=== PATIENT | female | born 1995 | race Caucasian/White ===

== ENCOUNTER 2020-05-27 07:40 | Inpatient (IN) ==
[2020-05-27] MEDS ORDERED: OXYTOCIN 30 UNITS/500 ML BAG IV PRN ×3 (08:30→16:54)
[2020-05-27] MEDS ORDERED: PENICILLIN G POTASSIUM 3 MU in DEXTROSE 5% 100 ML IV PRN (08:30)
[2020-05-27] MEDS ORDERED: LACTATED RINGER'S 1,000 ML IV PRN (08:30)
--- NOTE | 2020-05-27 08:35 | History & Physical Report ---
Date of Service May 27, 2020 Assessment & Plan (1) Supervision of normal first : IOL at 41 weeks PNL: Rh neg (s/p Rhogam x2), RI, GBS pos, COVID neg Admit, labs, start IV Intrapartum PCN ordered Patient currently does not want epidural Proceed with induction of labor per Pitocin augmentation protocol. Anticipate Admission and Anticipated Discharge Date Admission Date: May 27, 2020 History of Present Illness Primary Care Provider: NO PCP HPI Jaylene Jones is a 24 y/o female currently at 41 weeks WGA with an JOEY 05/20/2020 as determined by LMP who is here for IOL. Her was complicated by Rh- status (s/p Rhogam x2 during this - was anti-D positive) and GBS+ status. + contractions; + movement; - fluid loss; - bloody show Had regular appointments with OB. 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) Labs 10/10/2019 Rubella: immune VDRL/RPR: non-reactive Gonorrhea: negative Chlamydia: negative HIV: negative HbSAg: negative GBS: + 04/23/2020 COVID-19 negative 05/20/2020 CF: negative Allergies Allergy/AdvReac Type Severity Reaction Status Date / Time No Known Allergies Allergy Verified 05/27/20 07:54 Home Medications Medication Instructions Recorded Confirmed Type prenat.vits,sonia,[id number] 1 tab PO DAILY 10/06/19 05/27/20 History breast pump #1 ea 04/23/20 05/26/20 Rx Patient History Medical History Encounter for anatomic survey Vaginal bleeding during Surgical History S/P wisdom tooth extraction Social History (Updated 05/27/20 @ 07:55 by Rachel Aleman RN) Smoking Status: Never smoker Hx Alcohol Use: No Hx Substance Use: No Preferred Language: Wolof Communication Ability: Effective Visual Impairment: No Limitations Hearing Ability: Normal Barrel Centerer Required: No Beliefs That Will Affect Care: None marital status: marital status details: Ruben (23) [phone] Current Living Situation: Spouse Current Living Situation Comment: lives with spouse, 2 cats, spouse to change litter. current occupational status: employed current occupation: [employer] Other Information That Helps Us Care for You: No Feels Safe at Home: Yes Safety Concerns: Feels Safe At This Time Assistive Devices: None Review of Systems ROS Denies fever or chills. Denies shortness of breath or cough. Denies chest pain. Denies breast pain. Denies dysuria or hematuria. Denies leg pain or leg swelling. Denies headache or changes in vision. Physical Exam Physical Exam: PE General: Alert, oriented. No acute distress. Cardiac: Regular rate and rhythm, no murmurs/rubs/gallops. Respiratory: Clear to auscultation bilaterally a/p, no wheezes/rales/rhonchi. No increased work of breathing. Symmetrical chest rise. No respiratory distress. Abdomen: Gravid. Vertex position. + heart tones. - palpable contractions. EFW 7-8lbs Pelvic: Dilation 5cm; Effacement 90%; Station -[address] Thomason External FHT and external uterine monitors used; Category 1 tracing; + FHT variability. Lower Extremities: No lower extremity edema or swelling. No deep calf pain. John's negative bilaterally. Results & Data ([facility]) Vital Signs (Past 12 Hours) Vital Signs Pulse BP 05/27/20 07:52 122 H 120/65 Laboratory Results Laboratory Results Labs at admission today H.3 Hct: 35.0 WBC: 10.20 Plt: 187 Code Status & VTE Plan VTE Prophylaxis Plan VTE Prophylaxis will be ordered: No Reason for no VTE drug order: Treatment not indicated Supervising Physician Co-Signing Physician Notes Resident Physician Supervision Note: I was present with Dr. Toney during the history and exam. I discussed the case with the resident and agree with the findings and plan as documented in the note. Any exceptions or clarifications are listed here: 24yo @ 41 0/7, IOL for postdates. Pen G for GBS prophylaxis, pitocin. Patient agreeable with plan. Documented By: Dasha Thomason, Resident Activity Tracking Resident Involvement: Resident Care Provided Care Provided: Adult Hospital Medicine
[2020-05-27] MEDS ORDERED: PENICILLIN G POTASSIUM 6 MU in DEXTROSE 5% 250 ML IV STA (08:41)
[2020-05-27 08:52] LABS: Hemoglobin 12.3 g/dL (12.0-16.0); Mean Corpuscular Hemoglobin 31.7 pg (25-34); Mean Corpuscular Hgb Conc 35.1 g/dL (32-36); Mean Corpuscular Volume 90.2 fL (80-100); Mean Platelet Volume 10.8 fL (7.4-10.4); Nucleated RBC # (auto) 0.02 K/uL (0-0); Nucleated RBC % (auto) 0.2 %; Platelet Count 187 K/uL (130-400); RDW Coefficient of Variation 13.6 % (11.5-14.5); RDW Standard Deviation 45.2 fL (36.4-46.3); Red Blood Count 3.88 M/uL (4.2-5.4)
--- NOTE | 2020-05-27 14:38 | Labor Progress Brief Note ---
Date of Service May 27, 2020 Subjective Feeling contractions. FHT Cat 1 [place] Q 2-3 SVE 7/100/0 AROM clear fluid. Continue labor. Assessment & Plan Admission and Anticipated Discharge Date Admission Date: May 27, 2020 Results & Data ([facility]) Vital Signs (Past 12 Hours) Vital Signs Temp Pulse Resp BP 05/27/20 14:00 76 112/65 05/27/20 12:58 91 H 114/59 L 05/27/20 12:01 88 116/55 L 05/27/20 11:05 36.7 C 72 20 108/64 05/27/20 09:58 87 119/68 05/27/20 07:52 36.9 C 122 H 20 120/65 Coding Level of Care Code None
[2020-05-27] MEDS ORDERED: LIDOCAINE HCL 1% 20 ML VIAL ONE (16:15)
--- NOTE | 2020-05-27 16:47 | Delivery Summary ---
Vaginal Delivery Summary Date of Service May 27, 2020 Vaginal Delivery Summary and 2nd Degree LAC Vaginal Delivery Summary: Pre-delivery diagnoses: 24yo @ 41 0/7, Rh neg, IOL for postdates Post-delivery diagnoses: same Procedure: spontaneous vaginal delivery, repair Surgeon: Dasha Thomason DO Complications: none Findings: Viable . Apgars: . Weight pending, please see nursery records Estimated blood loss: Description of delivery: The patient progressed to complete with epidural anesthesia. She then began to push. She spontaneously vaginally delivered a viable from the cephalic presentation. The head delivered in VALERY positi on. The anterior shoulder delivered, followed by the posterior shoulder, followed by the body. The baby was placed on mother's abdomen and a spontaneous cry was heard. Delayed cord clamping was employed, and the cord was doubly clamped and cut. Cord blood was obtained. The placenta was delivered spontaneously intact with a 3-vessel cord. The uterus and vagina were swept of clots and debris. IV pitocin was given. The uterus became firm. The cervix, vagina, and perineum were inspected and a 2nd degree laceration was repaired with 3-0 vicryl in standard fashion. Excellent hemostasis was observed. The mother and baby are recovering in stable and good condition in the room. Sponge, needle and instrument counts were correct x 2. Dasha Thomason DO [facility] Vaginal Delivery Charge Vaginal Delivery Codes: 98619 global code for the antepartum, delivery, and post- Delivery Type Details: and 2nd Degree LAC
[2020-05-27] MEDS ORDERED: LACTATED RINGER'S 1,000 ML IV SCH (16:54)
[2020-05-27] MEDS ORDERED: BENZOCAINE 20% AER SPR 82.5 GM CAN EXT PRN (16:54)
[2020-05-27] MEDS ORDERED: ACETAMINOPHEN 325 MG TAB PO PRN (16:54)
[2020-05-27] MEDS ORDERED: ZOLPIDEM TARTRATE 5 MG TAB PO PRN (16:54)
[2020-05-27] MEDS ORDERED: HYDROCORTISONE ACETATE 25 MG SUPP PR PRN (16:54)
[2020-05-27] MEDS ORDERED: DIPHTHERIA/TETANUS/PERTUSSIS 0.5 ML SYR/VIAL IM ONE (16:54)
[2020-05-27] MEDS ORDERED: SUPERCREAM 0.870% 15 GM JAR EXT PRN (16:54)
[2020-05-27] MEDS ORDERED: oxyCODONE/ACETAMINOPHEN 5mg/325mg TAB PO PRN (16:54)
[2020-05-27] MEDS: DOCUSATE SODIUM 100 MG CAP PO SCH (20:41)
[2020-05-27] MEDS: IBUPROFEN 600 MG TAB PO PRN (23:24)
--- NOTE | 2020-05-28 05:46 | Obstetrical Progress Note ---
Date of Service May 28, 2020 Assessment & Plan (1) Supervision of normal first : S/p Day 1 - Feels well today. Eating well, voiding well, ambulating well. - Pain well-controlled with ibuprofen 600mg Q4H PRN. - Vital signs reviewed and WNL. - Hemoglobin reviewed. 12.3 --> 12.2 (today). - Blood Type: A-, antibody positive (Anti-D due to RhIg), GBS positive (s/p intrapartum PCN), Rubella Immune, COVID-19 negative - Continue routine care: encourage ambulation, monitor and control pain with Motrin PRN, continue regular OB diet, monitor lochia - Encourage breast feeding. - After discharge, will have 6-wk follow-up with Dr. Thomason Admission and Anticipated Discharge Date Admission Date: May 27, 2020 Supervising Physician Co-Signing Physician Notes Resident Physician Supervision Note: I was present with Dr. jon during the history and exam. I discussed the case with the resident and agree with the findings and plan as documented in the note. Any exceptions or clarifications are listed here: PPD#1 doing well. Documented By: Dasha Thomason, DO Subjective HPI Jaylene Jones is a 24 y/o female who is PPD 1 spontaneous vaginal delivery at 41 weeks. She reports feeling well overall this morning. No abdominal cramping and minimal-moderate pain well managed on analgesics. Voiding well. Tolerating meals overnight without difficulty. Patient has been able to ambulate some. passing gas and no bowel movement. Has persistent lochia with some improvement this morning. Currently [] [bottle]. Review of Systems Review of Systems: ROS Denies fever or chills. Denies shortness of breath or cough. Denies chest pain. Denies breast pain. Denies dysuria. Denies leg pain or leg swelling. Physical Exam Physical Exam: PE General: Alert, oriented. No acute distress. Cardiac: Regular rate and rhythm. No murmurs. Respiratory: Clear to auscultation bilaterally a/p, no wheezes/rales/rhonchi. No increased work of breathing. Symmetrical chest rise. No respiratory distress. Abdomen: Soft, nontender, nondistended. Bowel sounds present. Uterus: Uterine fundus firm, palpable at umbilicus. Lower Extremities: No lower extremity edema or swelling. No deep calf pain. John's negative bilaterally. Results & Data ([facility]) Vital Signs (Past 12 Hours) Vital Signs Temp Pulse Pulse Resp BP BP Pulse Ox 05/28/20 04:00 36.7 C 76 18 118/74 05/27/20 23:30 36.6 C 86 18 121/76 05/27/20 19:40 36.5 C 96 H 16 123/73 97 05/27/20 18:31 108 H 133/59 L 05/27/20 18:30 36.5 C 20 05/27/20 18:23 18 05/27/20 18:02 88 122/58 L Resident Activity Tracking Resident Involvement: Resident Care Provided Care Provided: Adult Hospital Medicine
[2020-05-28 06:55] LABS: Hematocrit (blood only) 35.2 % (37-47); Hemoglobin 12.2 g/dL (12.0-16.0); Mean Corpuscular Hemoglobin 31.2 pg (25-34); Mean Corpuscular Hgb Conc 34.7 g/dL (32-36); Mean Platelet Volume 11.1 fL (7.4-10.4); Platelet Count 202 K/uL (130-400); RDW Coefficient of Variation 13.6 % (11.5-14.5); RDW Standard Deviation 44.7 fL (36.4-46.3); Red Blood Count 3.91 M/uL (4.2-5.4)
[2020-05-28] MEDS: PRENATAL VITAMIN 1 TAB PO SCH (08:15)
[2020-05-28] MEDS: DOCUSATE SODIUM 100 MG CAP PO SCH ×2 (08:15→20:06)
[2020-05-28] MEDS: IBUPROFEN 600 MG TAB PO PRN (13:00)
[2020-05-28] MEDS ORDERED: bisacodyL 5 MG TABEC PO SCH (20:00)
[2020-05-29] MEDS: IBUPROFEN 600 MG TAB PO PRN (03:59)
[2020-05-29] MEDS ORDERED: bisacodyL 10 MG SUPP PR PRN (06:00)
[2020-05-29 07:21] LABS: Hematocrit (blood only) 37.1 % (37-47); Hemoglobin 12.5 g/dL (12.0-16.0)
--- NOTE | 2020-05-29 08:38 | Obstetrical Progress Note ---
Date of Service May 29, 2020 Assessment & Plan (1) Supervision of normal first : Post day 2 s/p . Stable for discharge Subjective Ambulation: ambulating normally Voiding: no voiding problems Passing Gas:: Yes Diet Tolerance:: regular diet Lochia:: Moderate Feeding Type:: breast feeding Physical Exam Constitutional WD/WN, vitals as above Respiratory normal respiratory effort; no respiratory distress and no labored breathing Gastrointestinal (Abdomen) Inspection/Auscultation: abdomen normal to inspection; abdomen not distended Percussion/Palpation: abdomen soft; abdomen nontender, no guarding and abdomen not rigid Genitourinary OB Exam Abdomen: + fundal height Fundus: + firm and + relation to umbilicus (Below); not tender and not boggy Results & Data ([facility]) Vital Signs (Past 12 Hours) Vital Signs Temp Pulse Resp BP 05/28/20 23:45 36.6 C 79 18 109/71
[2020-05-29] MEDS: DOCUSATE SODIUM 100 MG CAP PO SCH (09:54)
[2020-05-29] MEDS: PRENATAL VITAMIN 1 TAB PO SCH (09:54)
== END 2020-05-29 13:40 | disposition home or self-care (01) | DRG 768 ==
LOC: 4S1 07:40 → 4S2 19:00

== ENCOUNTER 2023-02-01 07:26 | Inpatient (IN) ==
[2023-02-01] MEDS ORDERED: LACTATED RINGER'S 1,000 ML IV PRN (07:55)
[2023-02-01] MEDS ORDERED: OXYTOCIN 30 UNITS/500 ML BAG IV PRN ×3 (07:55→15:59)
[2023-02-01] MEDS ORDERED: LIDOCAINE 1% LOCAL 20 ML VIAL INFIL PRN (07:55)
[2023-02-01 08:44] LABS: Hematocrit (blood only) 31.9 % (37.0-47.0); Hemoglobin 10.4 g/dl (12.0-16.0); Mean Corpuscular Hemoglobin 26.6 pg (25.0-34.0); Mean Corpuscular Hgb Conc 32.6 g/dL (32.0-36.0); Mean Corpuscular Volume 81.6 fL (80.0-100.0); Mean Platelet Volume 10.9 fL (9.4-12.4); Platelet Count 248 K/uL (130-400); RDW Coefficient of Variation 14.1 % (11.5-14.5); RDW Standard Deviation 41.1 fL (36.4-46.3); Red Blood Count 3.91 M/uL (4.20-5.40); White Blood Count 11.89 K/ul (4.8-10.8)
--- NOTE | 2023-02-01 09:24 | History & Physical Report ---
Date of Service February 01, 2023 Assessment & Plan (1) Encounter for supervision of normal in multigravida, antepartum: Plan: Admit to L&D. EFM/toco. Labs. IV. Will start PCN prior to starting pitocin, as want to get at least 4h treatment prior to delivery for GBS. Admission and Anticipated Discharge Date Admission Date: February 01, 2023 History of Present Illness Chief Complaint: induction of labor Primary Care Provider: NO PCP 27yo @ 40 10/25, here for IOL, GBS+ and Rh negative. Allergies Allergy/AdvReac Type Severity Reaction Status Date / Time No Known Allergies Allergy Verified 01/30/23 13:46 Home Medications Medication Instructions Recorded Confirmed Type prenat.vits,sonia,npq-ktjy-plnxh 1 tab PO DAILY 06/15/22 02/01/23 History Patient History Medical History Carrier of group B Streptococcus Encounter for anatomic survey Vaginal bleeding during Surgical History S/P wisdom tooth extraction Family History Father Deep vein thrombosis after knee surgery Other Colorectal cancer Dyslipidemia Heart disease Hypertension Kidney disease Osteoarthritis Thyroid disease Denies family history of Ovarian cancer Breast cancer Social History (Updated 06/15/22 @ 07:40 by Antionette Tavares) Smoking Status: Never smoker Do You Dip or Chew Tobacco: No; Hx Alcohol Use: No Hx Substance Use: No Preferred Language: Bulgarian Communication Ability: Effective Visual Impairment: No Limitations Hearing Ability: Normal Pricing Specialist Required: No Beliefs That Will Affect Care: None marital status: marital status details: Ruben (27) [phone] Current Living Situation: Spouse Current Living Situation Comment: lives with spouse, daughter, 2 cats, spouse to change litter. current occupational status: employed current occupation: [employer] Other Information That Helps Us Care for You: No Feels Safe at Home: Yes Assistive Devices: None and Glasses Review of Systems All systems reviewed & are unremarkable except as noted in HPI & below Physical Exam Physical Exam: FHT Cat 1 [place] rare SVE 6/100/0 Constitutional: WD/WN, vitals as above Respiratory: normal respiratory effort, lungs clear to auscultation no respiratory distress Cardiovascular: Rate/Rhythm: regular rate and regular rhythm Gastrointestinal (Abdomen): Inspection/Auscultation: abdomen normal to in spection Percussion/Palpation: abdomen soft; abdomen nontender Gravid. No s/s chorio or abruption. Skin: no rashes, warm and dry Psychiatric: A+Ox3, euthymic affect Results & Data Vital Signs (Past 12 Hours) Vital Signs Temp Pulse Resp BP 02/01/23 07:55 37.0 C 90 20 118/63 02/01/23 07:52 90 118/63 Coding Level of Care Code None Diagnoses Encounter for supervision of normal in multigravida, antepartum Z34.80
[2023-02-01] MEDS ORDERED: PENICILLIN G POTASSIUM 6 MU in DEXTROSE 5% 250 ML IV ONE (09:45)
[2023-02-01] MEDS ORDERED: PENICILLIN G POTASSIUM 3 MU in DEXTROSE 5% 100 ML IV PRN (12:21)
--- NOTE | 2023-02-01 14:43 | Labor Progress Brief Note ---
Date of Service February 01, 2023 Subjective Feeling ctx. FHT Cat 1 [place] Q 2-4 SVE 8/100/0 AROM clear fluid Anticipate . Continue to monitor. Assessment & Plan Admission and Anticipated Discharge Date Admission Date: February 01, 2023 Results & Data Vital Signs (Past 12 Hours) Vital Signs Temp Pulse Resp BP 02/01/23 14:37 36.6 C 20 02/01/23 07:55 37.0 C 90 20 118/63 02/01/23 14:36 77 116/72 02/01/23 13:29 79 20 111/61 02/01/23 12:06 90 92/70 L 02/01/23 11:17 36.8 C 85 20 110/68 02/01/23 07:52 90 118/63 Coding Level of Care Code None Diagnoses
--- NOTE | 2023-02-01 15:56 | Delivery Summary ---
Vaginal Delivery Summary Date of Service February 01, 2023 Vaginal Delivery Summary and 2nd Degree LAC Vaginal Delivery Summary: Pre-delivery diagnoses: 27yo @ 40 6/7, IOL postdates, GBS+, Rh negative Post-delivery diagnoses: same Procedure: spontaneous vaginal delivery, repair of 2nd degree perineal laceration Surgeon: Dasha Thomason DO Complications: none Findings: Viable female . Apgars: 8/9 . Weight pending, please see nursery records. Estimated blood loss: 300ml Description of delivery: The patient progressed to complete with epidural anesthesia. She then began to push. She spontaneously vaginally delivered a viable from the cephalic presentation. The head delivered in VALERY position. Nuchal x 1, easily reduced. The anterior shoulder delivered, followed by the posterior shoulder, followed by the body. The baby was placed on mother's abdomen and a spontaneous cry was heard. Delayed cord clamping was employed, and the cord was doubly clamped and cut. Cord blood was obtained. The placenta was delivered spontaneously intact with a 3-vessel cord. Extra lobe noted on placenta, approx 4-5cm. The uterus and vagina were swept of clots and debris. IV pitocin was given. The uterus became firm. The cervix, vagina, and perineum were inspected and a 2nd degree laceration was noted. 1% lidocaine injected to local area. Laceration repaired with 3-0 Vicryl in standard fashion. Excellent hemostasis was observed. The mother and baby are recovering in stable and good condition in the room. Sponge, needle and instrument counts were correct x 2. Dasha Thomason DO [facility] Vaginal Delivery Charge Vaginal Delivery Codes: 20037 global code for the antepartum, delivery, and post- Delivery Type Details: and 2nd Degree LAC
[2023-02-01] MEDS ORDERED: HYDROCORTISONE ACETATE 25 MG SUPP PR PRN (15:59)
[2023-02-01] MEDS ORDERED: bisacodyL 10 MG SUPP PR PRN (15:59)
[2023-02-01] MEDS ORDERED: oxyCODONE/ACETAMINOPHEN 5mg/325mg TAB PO PRN (15:59)
[2023-02-01] MEDS ORDERED: IBUPROFEN 600 MG TAB PO PRN (15:59)
[2023-02-01] MEDS ORDERED: BENZOCAINE 20% SPRY 85 APPLN/85 GM CAN EXT PRN (15:59)
[2023-02-01] MEDS ORDERED: DIPHTHERIA/TETANUS/PERTUSSIS Vaccine (Tdap, Age 7+yrs) 0.5mL SYR/VL IM ONE (15:59)
[2023-02-01] MEDS: ACETAMINOPHEN 325 MG TAB PO PRN (16:13)
[2023-02-01] MEDS: DOCUSATE SODIUM 100 MG CAP PO SCH (20:15)
--- NOTE | 2023-02-02 04:52 | Obstetrical Progress Note ---
Date of Service <Edy Rene DO - Last Filed: 02/02/23 06:00> February 02, 2023 Assessment & Plan <Edy Rene DO Last Filed: 02/02/23 06:00> (1) (spontaneous vaginal delivery): Plan Post day 1 s/p Vital signs reviewed and WNL Pt feels well today, eating, voiding, and ambulating well Pain well controlled with Tylenol Routine post care - OOB, ambulation, diet progression as tolerated After discharge, will have 6 week follow-up with Dr. Thomason. <Dasha Thomason, - Last Filed: 02/02/23 07:05> (1) (spontaneous vaginal delivery): Subjective <Edy Rene - Last Filed: 02/02/23 06:00> Ambulation: ambulating normally Voiding: no voiding problems Passing Gas:: Yes Diet Tolerance:: regular diet Lochia:: Moderate Feeding Type:: breast feeding Pain well controlled, no overnight pain meds needed Review of Systems -Denies fever or chills -Denies dyspnea, chest pain, or palpitations -Denies breast pain -Denies dysuria -Denies headache or changes in vision Physical Exam <Edy Rene DO Last Filed: 02/02/23 06:00> General: Alert and oriented. No acute distress Cardiac: Regular rate and rhythm, no murmurs appreciated Respiratory: Lungs clear to auscultation bilaterally, No increased work of breathing Abdominal: Soft, non-tender, non-distended. Bowel sounds present. Uterus: Uterine fundus firm, palpable below umbilicus Extremities: No lower extremity edema, calves non-tender bilaterally Results & Data <Edy Rene DO - Last Filed: 02/02/23 06:00> Vital Signs (Past 12 Hours) Vital Signs Temp Pulse Pulse Resp BP BP Pulse Ox 02/02/23 02:53 37 C 80 18 110/76 96 02/01/23 23:15 36.7 C 77 16 118/75 98 02/01/23 20:30 36.6 C 81 18 113/73 99 02/01/23 17:20 18 02/01/23 18:07 37.0 C 69 20 123/58 L 02/01/23 17:52 71 130/63 02/01/23 17:37 86 128/64 02/01/23 17:22 80 133/63 02/01/23 17:07 80 127/62 O2 Del Method 02/02/23 02:53 Room Air 02/01/23 23:15 Room Air 02/01/23 20:30 Room Air 02/01/23 17:20 02/01/23 18:07 02/01/23 17:52 02/01/23 17:37 02/01/23 17:22 02/01/23 17:07 <Dasha Thomason, - Last Filed: 02/02/23 07:05> Co-Signing Physician Notes Resident Physician Supervision Note: I interviewed and examined the patient. Discussed with Dr. Rene and agree with findings and plan as documented in the note. Any exceptions or clarifications are listed here: PPD 1 doing well. Desires discharge home. DC instructions reviewed. Followup 6w in office. Documented By: Dasha Thomason DO Resident Activity Tracking <Edy Rene, - Last Filed: 02/02/23 06:00> Resident Involvement: Resident Care Provided Care Provided: OB Delivery
[2023-02-02 06:47] LABS: Hematocrit (blood only) 31.6 % (37.0-47.0); Hemoglobin 10.4 g/dl (12.0-16.0)
[2023-02-02] MEDS: DOCUSATE SODIUM 100 MG CAP PO SCH (07:49)
[2023-02-02] MEDS: ACETAMINOPHEN 325 MG TAB PO PRN (07:49)
[2023-02-02] MEDS ORDERED: PRENATAL VITAMIN 1 TAB PO SCH (08:00)
[2023-02-02] MEDS ORDERED: bisacodyL 5 MG TABEC PO SCH (20:00)
== END 2023-02-02 19:45 | disposition home or self-care (01) | DRG 807 ==
LOC: 4S1 07:26 → 4E2 18:40